=== PATIENT | male | born 1955 | race Hispanic/Latino ===

== ENCOUNTER 2021-05-24 14:13 | Emergency (ER) | payer BC, SELFPAY ==
[2021-05-24] MEDS ORDERED: Acetaminophen/Codeine 30-300mg Tablet ONE (17:56)
[2021-05-25] MEDS ORDERED: Bupivacaine PF 0.5% 30 ML VIAL ONE (06:54)
[2021-05-25] MEDS ORDERED: EPINEPHrine 1 MG/ML AMP ONE (06:54)
[2021-05-25 15:39] LABS: SARS-CoV-2 PCR by NAA Not Detected (NotDetected)
== END 2021-05-24 18:40 | disposition home or self-care (01) ==
LOC: CSHERS 14:13
DX: B34.9 Viral infection, unspecified (principal); I10 Essential (primary) hypertension; E11.9 Type 2 diabetes mellitus without complications; M10.9 Gout, unspecified; E78.5 Hyperlipidemia, unspecified; Z20.822 Contact with and (suspected) exposure to COVID-19
CPT/HCPCS: 71045; J0171; S0020; U0003; U0005

== ENCOUNTER 2025-05-01 08:57 | Outpatient (CLI) | payer MEDICARE | END 2025-05-01 08:58 | disposition home or self-care (01) | LOC: CSHSLEEP 08:57 | PROVIDERS: ATTEND Internal Medicine | DX: G47.33 Obstructive sleep apnea (adult) (pediatric) (principal); F41.9 Anxiety disorder, unspecified; E11.9 Type 2 diabetes mellitus without complications; R06.83 Snoring; I10 Essential (primary) hypertension | CPT/HCPCS: 95810 ==